=== PATIENT | male | born 1990 | race African-American/Black ===

== ENCOUNTER 2018-02-03 00:21 | Emergency (ER) | payer BC ==
--- NOTE | 2018-02-03 00:42 | PDOC ---
History of Present Illness - General Chief Complaint: Abscess Boil Stated Complaint: BOIL Time Seen by Provider: 02/03/18 00:38 - History of Present Illness Initial Comments: 27-year-old with no significant past medical history presenting with abscess on his buttocks. Patient states that he has had previous abscesses that have been successfully treated with hot towels and hot water. He tried this regimen on Tuesday which allowed the abscess to drain foul-smelling yellow discharge, but the abscess has closed up once again. The last abscess was in his left axilla about two or three years ago and the one before that was in his right inguinal area about ten years ago. Patient endorses chills which he usually has when feeling pain. The pain is so severe that he rates it 10/10 and is unable to sit. He has taken tylenol at home with minimal relief. Last bowel movement was today and was normal form of brown stool. Denies history of immunosuppression or diabetes. Past History - Past Medical History Allergies/Adverse Reactions: Allergies Allergy/AdvReac Type Severity Reaction Status Date / Time ibuprofen Allergy Severe Swelling Verified 02/03/18 00:34 Home Medications: Ambulatory Orders Sulfamethoxazole/Trimethoprim [Bactrim Ds Tablet] 1 each PO BID #14 tablet 02/03 COPD: No Other medical history: Pt denies - Suicide/Smoking/Psychosocial Hx Smoking History: Never smoked Have you smoked in the past 12 months: No Information on smoking cessation initiated: No Hx Alcohol Use: No Drug/Substance Use Hx: Yes (Marijuana) Substance Use Type: Marijuana Review of Systems - Review of Systems Comments:: Constitutional: no fever, +chills HEENT: no throat pain, no dysphagia Cardiovascular: no chest pain, no palpitations Respiratory: no cough, no shortness of breath Gastrointestinal: no abdominal pain, no nausea, no vomiting Genitourinary: no dysuria, no frequency Musculoskeletal: no myalgia, no arthralgia Skin: +abscess, no itching Neurologic: no headache, no dizziness *Physical Exam - Vital Signs Last Vital Signs Temp Pulse Resp BP Pulse Ox 98.2 F 94 H 18 141/79 100 02/03/18 00:35 02/03/18 00:35 02/03/18 00:35 02/03/18 00:35 02/03/18 00:35 - Physical Exam Comments: General: Awake, alert, and fully oriented, in no acute distress Head: No signs of trauma Eyes: EOMI, sclera anicteric ENT: Moist mucus membranes Neck: Normal ROM, supple Lungs: Lungs clear, Normal breath sounds Cardio: Regular rhythm, S1 and S2 present Abdomen: Soft, nontender. No guarding, no rebound, no masses Extremities: Normal range of motion, Distal pulses present SKIN: Abscess present in cleft of left buttock, measuring 3x1cm with no drainage ; no surrounding cellulitis Neurologic: Cranial nerves II through XII grossly intact. Normal speech Procedures - Incision and Drainage I&D Site: Left: Buttock Anesthesia: 1% Lidocaine Volume(ml): 5 Iodinated Packin/2 in Complications: none Dressing: Yes Progress: Patient tolerated procedure Medical Decision Making - Medical Decision Making 27-year-old with no significant past medical history presenting with abscess on his buttocks. -Abscess required drainage; see procedure note -Wound culture sent -Since he has had previous abscesses, will treat for presumptive MRSA with bactrim -Ultram given for pain *DC/Admit/Observation/Transfer Diagnosis at time of Disposition: Abscess - Discharge Dispostion Disposition: HOME Condition at time of disposition: Stable - Prescriptions Prescriptions: Sulfamethoxazole/Trimethoprim [Bactrim Ds Tablet] 1 each PO BID #14 tablet - Referrals Referrals: [facility] [place] [facility] [place] [Provider Group] - Patient Instructions Printed Discharge Instructions: DI for Anal Abscess, DI for Incision and Drainage of a Skin Abscess Additional Instructions: You came to the ED for an abscess/boil. The abscess was drained and packing was placed. Antibiotics and pain prescription sent to your pharmacy. You can also take tylenol at home for pain. Follow the instructions on the medication bottle. Return for reexamination of the wound on Tuesday. Reevaluation can be performed by your primary patient care nursing assistant or you may return to the ED. You have been referred to the [facility]. Call and make an appointment at the number provided. Seek medical attention if any of the following occur: -Fever or chills -Reaccumulation of pus in the area -Increased pain or redness -Red streaks -Increased swelling -Any new or concerning symptoms If you think you are having an emergency, call for emergency medical services or present to the emergency department right away. - Post Discharge Activity Forms/Work/School Notes: Back to Work
[2018-02-03 00:52] VITALS: TEMP 98.2; BMI 21.1
[2018-02-03] MEDS ORDERED: SULFAMETHOXAZOLE/TRIMETHOPRIM 800MG/160MG D.S. TABLET PO ONE (01:18)
[2018-02-03] MEDS ORDERED: traMADol HCL 50 MG TABLET PO ONE (01:18)
[2018-02-03] MEDS ORDERED: traMADol HCL 50 MG TABLET ONE (01:39)
[2018-02-03] MEDS ORDERED: SULFAMETHOXAZOLE/TRIMETHOPRIM 800MG/160MG D.S. TABLET ONE (01:40)
--- NOTE | 2018-02-03 02:01 | PDOC ---
Attending Attestation - Resident Resident Name: Neli Gaytan - ED Attending Attestation I have performed the following: I have examined & evaluated the patient, The case was reviewed & discussed with the resident, I agree w/resident's findings & plan - HPI HPI: 02/03/18 01:58 Healthy 27-year-old male with history of abscess in the past presents with gluteal abscess progressing over the last 4 days, increased pain and pressure over the last 2 days. No fevers or chills, no bloody or purulent discharge. - Physicial Exam PE: 02/03/18 01:58 Afebrile, hemodynamically stable Slight discomfort but otherwise well-appearing Skin: There is a 3-4 cm abscess in the upper gluteal cleft that is fluctuant, no active discharge or bleeding. There was no tracking cellulitis or induration , no other skin lesions. - Medical Decision Making 02/03/18 01:59 Healthy 27-year-old immunocompetent male presents with gluteal cleft abscess without evidence of expanding cellulitis or further complication. Abscess incision and drainage We'll treat with Bactrim given history of abscess abscess wound checks q48h, understands return criteria
[2018-02-03 02:07] VITALS: BP 138/76; PULSE 76
== END 2018-02-03 03:15 | disposition home or self-care (01) ==
LOC: JER 00:21
PROC: 0H98XZZ Drainage of Buttock Skin, External Approach (ICD-10-PCS; principal; 2018-02-03)
DX: L02.31 Cutaneous abscess of buttock (principal)
CPT/HCPCS: 87070; 87076; 87186; 87205; 99283-25

== ENCOUNTER 2018-02-05 07:29 | Emergency (ER) | payer SELFPAY ==
[2018-02-05 07:34] VITALS: BP 117/60; PULSE 70; TEMP 98.2; BMI 21.1
--- NOTE | 2018-02-05 07:56 | PDOC ---
History of Present Illness - General Chief Complaint: Revisit,Wound Recheck Stated Complaint: REVISIT (WOUND) History Source: Patient Exam Limitations: No Limitations - History of Present Illness Initial Comments: 02/05/18 07:49 27 yo M with no pertinent past medical hx presents 2 days after I&D of pilonidal abscess. The patient tolerated the procedure and was given bactrim for MRSA coverage. Per the patient, he continues to have drainage but it is "small, yellow, and watery red". The pain dissipated. Denies fever, chills, hematochezia, red streaks, low back pain, loss of sensation in the area, chest pain, SOB, dysuria, hematuria, and leg pain/swelling. Pmhx: Refer to above Shx: None Meds: Bactrim (on day 3) Allergies: Ibuprofen Social: Denies tobacco, alcohol, and substance abuse. Past History - Past Medical History Allergies/Adverse Reactions: Allergies Allergy/AdvReac Type Severity Reaction Status Date / Time ibuprofen Allergy Severe Swelling Verified 02/05/18 07:33 Home Medications: Ambulatory Orders Sulfamethoxazole/Trimethoprim [Bactrim Ds Tablet] 1 each PO BID #14 tablet 02/03 COPD: No - Suicide/Smoking/Psychosocial Hx Smoking History: Never smoked Have you smoked in the past 12 months: No Hx Alcohol Use: No Drug/Substance Use Hx: Yes (Marijuana) Substance Use Type: Marijuana Review of Systems - Review of Systems Able to Perform ROS?: Yes Is the patient limited Bulgarian proficient: No Constitutional: No: Chills, Diaphoresis, Fever Respiratory: No: Cough, Shortness of Breath Cardiac (ROS): No: Chest Pain, Palpitations ABD/GI: No: Constipated, Diarrhea, Nausea, Rectal Bleeding, Vomiting, Tarry Stools : No: Dysuria, Hematuria Musculoskeletal: No: Back Pain Integumentary: No: Lesions, Rash Neurological: No: Numbness, Paresthesia, Weakness Hematologic/Lymphatic: No: Anemia *Physical Exam - Vital Signs Last Vital Signs Temp Pulse Resp BP Pulse Ox 98.2 F 70 18 117/60 100 02/05/18 07:30 02/05/18 07:30 02/05/18 07:30 02/05/18 07:30 02/05/18 07:30 - Physical Exam General Appearance: Yes: Nourished, Appropriately Dressed HEENT: positive: EOMI, DANIELLE, Normal Voice Neck: negative: Lymphadenopathy (R), Lymphadenopathy (L) Respiratory/Chest: positive: Lungs Clear, Normal Breath Sounds. negative: Chest Tender, Respiratory Distress, Accessory Muscle Use Cardiovascular: positive: Regular Rhythm, Regular Rate, S1, S2. negative: Systolic Murmur Integumentary: positive: Normal Color, Dry, Warm, Other (pilonidal abscess open without active drainage with packing. 0.5 cm length. No tenderness around the site. Minor tenderness to palpation on the wound. ) Neurologic: positive: Fully Oriented, Alert, Normal Mood/Affect Medical Decision Making - Medical Decision Making 02/05/18 08:09 27 yo M with no pertinent past medical hx presents for wound check 48 hours after I&D s/p bactrim administration for concerns for possible MRSA. Initial vitals: Initial Vital Signs Temp Pulse Resp BP Pulse Ox 98.2 F 70 18 117/60 100 02/05/18 07:30 02/05/18 07:30 02/05/18 07:30 02/05/18 07:30 02/05/18 07:30 Work up: Based on PE and hx, the wound is healing appropriately with decreased drainage and the patient denies ssx of systemic infection. Denies red streaks, worsening pain, fevers/chills, and paresthesia around the site. Patient has had abscesses in the past on other parts of the body and is aware how to do post-incision care. Packing was removed and he was given instructions on good wound care. Dispo: Discharge 02/05/18 08:24 *DC/Admit/Observation/Transfer Diagnosis at time of Disposition: Wound check, abscess - Discharge Dispostion Disposition: HOME Decision to Admit order: No - Referrals - Patient Instructions Printed Discharge Instructions: DI for Wound Infection Additional Instructions: You were seen in the evaluation of your abscess wound check. It appears to be draining well and no complications arose from the procedure. Please keep dressing loosely on it and to keep the area clean. Please return to the emergency department if you have fever/chills, red streaks, worsening pain, increased drainage, profuse amounts of blood, loss of ability to keep stool in, and loss of sensation in the area. Thank you. - Post Discharge Activity
--- NOTE | 2018-02-05 08:56 | PDOC ---
Attending Attestation - Resident Resident Name: Sancho Jeff - ED Attending Attestation I have performed the following: I have examined & evaluated the patient, The case was reviewed & discussed with the resident, I agree w/resident's findings & plan, Exceptions are as noted - HPI HPI: 02/05/18 08:51 27 yo m s/p i &D on 9th here for wound check and packing removal. pain improving. no f/c no other complaints. doing well overall. taking bactrim as prescribed. - Physicial Exam PE: 02/05/18 08:55 awake alert NAD buttock wound packing removed. cdi no surrounding erythema, min drainage. - Medical Decision Making 02/05/18 08:56 pt encouraged to shower twice daily or soak, return only as needed. continue bactrim.
== END 2018-02-05 09:00 | disposition home or self-care (01) ==
LOC: JER 07:29
DX: Z48.817 Encounter for surgical aftercare following surgery on the skin and subcutaneous tissue (principal); Z48.01 Encounter for change or removal of surgical wound dressing
CPT/HCPCS: 99281-25